=== PATIENT | female | born 1950 ===

== ENCOUNTER 2017-08-19 15:27 | Outpatient (CLI) | payer BC ==
--- NOTE | 2017-08-19 16:47 | Diagnostic Imaging Report ---
Indication: Chest pain and trauma. Comparison: None Findings: 4 views of the left chest wall was obtained for evaluation of the ribs. The bones are diffusely osteopenic. There is no acute fracture identified. The left lung is clear. There is no pneumothorax identified. No effusion seen. IMPRESSION: No acute fracture identified
== END 2017-08-19 17:27 | disposition home or self-care (01) ==
LOC: RAD 15:27
DX: R07.81 Pleurodynia (principal); M85.88 Other specified disorders of bone density and structure, other site